=== PATIENT | female | born 1960 | race Caucasian/White ===

== ENCOUNTER → 2016-10-04 | Outpatient (CLI) | payer MEDICARE, BC ==
--- NOTE | 2016-10-04 17:20 | CT ---
EXAMINATION TYPE: CT chest wo con DATE OF EXAM: 10/04/2016 5:10 PM COMPARISON: NONE HISTORY: Pt states of cough x3 months. Hx of multiple myeloma. CT DLP: 333.1 mGycm Automated exposure control for dose reduction was used. FINDINGS: There is metal artifact from posterior paraspinal rods in the thoracic spine and upper lumbar spine. Detail is therefore limited. Supine and prone position images were obtained of the lungs that show some interstitial reticular inf iltrate are dominantly at the lung bases. There is no evidence of a pulmonary mass. There is no pleur al effusion. Heart size is normal. There are no hilar masses. There is no evidence of emphysema. Ther e is no mediastinal adenopathy. There is no bronchiectasis. There is no hiatal hernia. IMPRESSION: INTERSTITIAL PREDOMINANTLY BASILAR PULMONARY INFILTRATES. NO EVIDENCE OF OF A PULMONARY MASS. 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 PREVIOUS THORACIC SPINE SURGERY NOTED.
== END | disposition home or self-care (01) ==
LOC: RADCTMAIN 16:33
PROVIDERS: ATTEND Nurse Practitioner Adult Health
DX: R91.8 Other nonspecific abnormal finding of lung field (principal); R05 Cough; C90.00 Multiple myeloma not having achieved remission; Z98.890 Other specified postprocedural states
CPT/HCPCS: 71250